=== PATIENT | female | born 1960 | race Caucasian/White ===

== ENCOUNTER → 2017-08-29 13:11 | Outpatient (REF) | payer OTHER, SELFPAY ==
[2017-08-29 17:33] LABS: Amphetamine/Metha Screen,Urine Negative ng/mL (<1000); Barbiturates Screen,Urine Negative ng/mL (<200); Benzodiazepines Screen,Urine Positive ng/mL (200); Cannabinoid Screen,Urine Negative ng/mL (<50); Cocaine Screen,Urine Negative ng/g (<300); Methadone Screen,Urine Negative ng/mL (<300); Opiate Screen,Urine Negative ng/mL (<300); Phencyclidine Screen,Urine Negative ng/mL (<25)
== END ==
LOC: LAB 13:11
PROVIDERS: Visit Provider Emergency Medicine
DX: Z79.899 Other long term (current) drug therapy (principal)
CPT/HCPCS: 80305

== ENCOUNTER → 2018-05-04 09:02 | Outpatient (REF) | payer OTHER, SELFPAY | LOC: LAB 09:02 | PROVIDERS: Visit Provider Emergency Medicine | DX: N39.0 Urinary tract infection, site not specified (principal) | CPT/HCPCS: 87086; 87088; 87186 ==

== ENCOUNTER → 2018-07-06 13:20 | Outpatient (CLI) | payer OTHER, SELFPAY ==
[2018-07-06 14:29] LABS: Amphetamine/Metha Screen,Urine Negative ng/mL (<1000); Barbiturates Screen,Urine Negative ng/mL (<200); Benzodiazepines Screen,Urine Positive ng/mL (<200); Cannabinoid Screen,Urine Negative ng/mL (<50); Cocaine Screen,Urine Negative ng/mL (<300); Methadone Screen,Urine Negative ng/mL (<300); Opiate Screen,Urine Positive ng/mL (<300); Phencyclidine Screen,Urine Negative ng/mL (<25)
== END ==
PROVIDERS: PCP Emergency Medicine; Visit Provider Emergency Medicine
DX: Z79.899 Other long term (current) drug therapy (principal)
CPT/HCPCS: 80305

== ENCOUNTER → 2018-11-25 14:07 | Outpatient (CLI) | payer OTHER, SELFPAY ==
[2018-11-25 16:15] LABS: Amphetamine/Metha Screen,Urine Negative ng/mL (<1000); Barbiturates Screen,Urine Negative ng/mL (<200); Benzodiazepines Screen,Urine Positive ng/mL (<200); Cannabinoid Screen,Urine Negative ng/mL (<50); Cocaine Screen,Urine Negative ng/mL (<300); Methadone Screen,Urine Negative ng/mL (<300); Opiate Screen,Urine Positive ng/mL (<300); Phencyclidine Screen,Urine Negative ng/mL (<25)
== END ==
PROVIDERS: Visit Provider Emergency Medicine
DX: M54.9 Dorsalgia, unspecified (principal); Z79.899 Other long term (current) drug therapy
CPT/HCPCS: 80305

== ENCOUNTER → 2020-06-12 14:16 | Outpatient (CLI) | payer OTHER, SELFPAY ==
[2020-06-12 14:43] LABS: Chloride 106 mmol/L (98-107); Potassium 4.5 mmoL/L (3.5-5.1); Sodium 141 mmol/L (136-145)
[2020-06-12 14:45] LABS: Blood Urea Nitrogen 12 mg/dl (7-17); Estimated Glomerular Filt Rate 86 ml/min (>60); GFR (African American) 104 ML/MIN (>60)
[2020-06-12 14:46] LABS: Alanine Aminotransferase 20 U/L (12-78); Albumin Level 4.1 g/dl (3.5-5.0); Albumin/Globulin Ratio 1.6 (1.1-1.8); Alkaline Phosphatase 96 U/L (38-126); Anion Gap 10.5 mEq/L (5-15); Aspartate Amino Transferase 26 U/L (14-36); Bilirubin,Total 0.3 mg/dl (0.2-1.3); Calcium 9.6 mg/dl (8.4-10.2); Carbon Dioxide 29 mmol/L (22.0-30.0); Cholesterol 215 mg/dl (140-200); Globulin 2.5 g/dL (1.3-3.2); Glucose 110 mg/dl (74-100); Total Protein,Serum 6.6 g/dl (6.3-8.2); Triglycerides 265 mg/dl (30-150); VLDL Cholesterol 53 mg/dL (0-40)
[2020-06-12 14:47] LABS: Chol/HDL Ratio 5.2 (1-3.5); HDL Cholesterol 41 mg/dl (40-60)
[2020-06-12 14:48] LABS: Basophils % 0.5 % (0.1-2.0); Eosinophils # 0.3 K/mm3 (0.0-0.4); Eosinophils % 4.1 % (0.1-12.0); Hematocrit 44.2 % (37.0-47.0); Hemoglobin 14.8 g/dL (12.2-16.2); Lymphocytes # 2.2 K/mm3 (0.7-4.5); Mean Corpuscular HGB Conc 33.5 g/dL (31.8-35.4); Mean Corpuscular Volume 98.4 fl (81-99); Mean Platelet Volume 9.5 fl (7.4-10.4); Monocytes # 0.3 K/mm3 (0.1-1.0); Monocytes % 4.6 % (1.7-9.3); Neutrophils # 3.6 K/mm3 (1.8-7.8); Neutrophils % 56.8 % (37.0-80.0); Platelet Count 256 K/mm3 (142-424); Red Blood Count 4.49 M/mm3 (4.20-5.40); Red Cell Distribution Width 13.2 % (11.5-17.5); White Blood Count 6.3 K/mm3 (4.8-10.8)
[2020-06-12 14:57] LABS: Direct LDL Cholesterol 134.14 mg/dL (100-129)
[2020-06-12 15:02] LABS: 25-OH Vitamin D, Total 29.5 ng/mL (30-100)
[2020-06-12 15:03] LABS: Free T4 (Free Thyroxine) 1.01 ng/dl (0.78-2.19)
[2020-06-12 15:16] LABS: Thyroid Stimulating Hormone 1.55 uIU/mL (0.465-4.68)
== END ==
PROVIDERS: Visit Provider Emergency Medicine
DX: E55.9 Vitamin D deficiency, unspecified (principal); E66.9 Obesity, unspecified; Z79.899 Other long term (current) drug therapy
CPT/HCPCS: 80053; 80061; 82306; 84439; 84443; 85025

== ENCOUNTER 2021-05-15 20:05 | Emergency (ER) | payer OTHER, SELFPAY ==
[2021-05-15 20:18] VITALS: BP 130/62; PULSE 66; RESP 20; TEMP 36.6; O2SAT 95; BMI 39.1
--- NOTE | 2021-05-15 20:19 | XR_ITS ---
PROCEDURE INFORMATION: Exam: XR Right Shoulder Exam date and time: 05/15/2021 8:19 PM Age: 60 years old Clinical indication: Pain and injury or trauma; Other: Injured while lifting PT; Work related; Sprain or strain; Shoulder; Right; Additional info: Pulled it at work having pain TECHNIQUE: Imaging protocol: XR Right shoulder. Views: 2 or more views. COMPARISON: No relevant prior studies available. FINDINGS: Bones/joints: No acute or healing fracture or malalignment. No unusual lytic or sclerotic lesions of bone. Moderate degenerative changes of the right acromioclavicular joint. Lungs: Calcified granuloma at the right upper lobe. Soft tissues: Normal. IMPRESSION: No acute or healing fracture or malalignment.
--- NOTE | 2021-05-15 21:14 | HMH.EDUTC ---
[facility] [place] Disposition Clinical Impression: Shoulder strain Qualifiers: Encounter type: initial encounter Laterality: right Qualified Code(s): S46.911A - Strain of unspecified muscle, fascia and tendon at shoulder and upper arm level, right arm, initial encounter Disposition: Home, Self-Care Condition on Discharge: Good Instructions: Muscle Strain, DI for Shoulder Pain, Methocarbamol Additional Instructions: *Ibuprofen shanda 6 hours with meal as needed for pain/inflammation if you can take it *Remember you had a Toradol shot in the clinic today, which is similar to Motrin *Not additional anti-inflammatory like motrin, aleve, advil with the above amount of ibuprofen. You can still take Tylenol every 4 hours as needed if you need something else for pain *Ice 20 minutes every 2 hours for the first 48 hours after the initial injury followed by moist heat every 20 minutes 3-4 times a day to affected area *Muscle relaxer as prescribed as needed for muscle spasms but remember, it WILL cause drowsiness You cannot take it and drive, operate machinery or care for small children. *Keep this area active, no movement leads to more stiffness, However take it easy and avoid heavy lifting pushing or pulling *Follow up with you family doctor if no improvement for further treatment Prescriptions: methocarbamoL [Methocarbamol 500mg Tablet] 500 mg PO BID PRN #10 tab PRN Reason: Muscle Spasm Transmission Status: Pending to [facility] Referrals: Mehul Peñaloza MD [Primary Care Provider] - As needed Forms: Work/School Release Time of Disposition: 21:33 Medical Decision Making - Evaristo Inquiry Pt receiving controlled substance: No Evaristo was queried for this patient: No Vital Signs: 05/15/21 20:18 Temperature 97.9 F Temperature Source Oral Pulse Rate [Left Radial] 66 Respiratory Rate 20 Blood Pressure [Right Arm] 130/62 Blood Pressure Mean [Right Arm] 84 Blood Pressure Source [Right Arm] Automatic Cuff Blood Pressure Position [Right Arm] Sitting 02 Sat by Pulse Oximetry 95 Oxygen Delivery Method Room Air Orders (Tests/Meds): ORDERS Category Date Time Status Shoulder XR right miminum 2 views [XR shoulder RT min Exams 05/15/21 20:19 Taken 2V] Stat - Radiology Data #1 Image(s): Shoulder Image Reviewed: Yes I have reviewed radiologist's interpretation IMPRESSION: No acute or healing fracture or malalignment. Medical Decision Narrative: Medication discussed with pharmacy [facility] [place] HPI - General Stated complaint: AO injured shoulder at work Time Seen by Provider: 05/15/21 21:14 Mode of Arrival: Ambulatory Source of Information: Patient Limitations: No Limitations Description of Symptoms (Recalled from Triage Doc. 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 she felt something pull in her right shoulder area States that ever since she has been having pain in her shoulder when she moves it States that she feels like it is tight and pulls when she tries move - Related Data Home Medications Medication Instructions Recorded Confirmed methocarbamol 750 mg tablet 750 mg PO QID 11/15/20 04/03/21 diclofenac sodium 1 % topical gel 4 g TOPICAL QID 12/04/20 04/03/21 Previous Rx's Medication Instructions Recorded duloxetine 30 mg capsule,delayed See Rx Instructions .ROUTE 08/25/19 release .COMPLEX #90 cap atenolol 50 mg tablet See Rx Instructions .ROUTE 08/11/20 .COMPLEX #90 tab clonidine HCl 0.1 mg tablet 0.1 mg PO DAILY PRN #90 tab 01/31/21 lidocaine 5 % topical patch 1 patch TOPICAL BID #60 each 01/31/21 lisinopril 20 mg tablet 20 mg PO ROBERTA
[2021-05-15 21:37] VITALS: BP 130/62; PULSE 66; RESP 20; TEMP 36.6; O2SAT 95
== END 2021-05-15 21:39 | disposition home or self-care (01) ==
LOC: ER 20:17 → UTC 20:17
PROVIDERS: Emergency Provider Nurse Practitioner; PCP Emergency Medicine
DX: S46.911A Strain of unspecified muscle, fascia and tendon at shoulder and upper arm level, right arm, initial encounter (principal); X50.0XXA Overexertion from strenuous movement or load, initial encounter; Y92.69 Other specified industrial and construction area as the place of occurrence of the external cause; Y99.0 Civilian activity done for income or pay; F41.8 Other specified anxiety disorders; K21.9 Gastro-esophageal reflux disease without esophagitis; E78.5 Hyperlipidemia, unspecified; Z79.899 Other long term (current) drug therapy
CPT/HCPCS: 73030; 99202; G0463

== ENCOUNTER 2021-07-18 10:00 | Outpatient (RCR) | payer OTHER, SELFPAY ==
--- NOTE | 2021-06-25 11:02 | HMH.OTOPEV ---
OT Inpatient Evaluation Rehab OT Outpatient Eval Start: 06/25/21 10:48 Freq: Status: Active Protocol: Document 06/25/21 10:49 ROSSY (Rec: 06/25/21 11:02 ROSSY [id number]) Electronically Signed By Cate Connolly OT 06/25/21 10:49 Outpatient Therapy Subjective History Subjective History 60 year old female referred to skilled OP OT services for right frozen shoulder/partial thickness rotator cuff tear. Patient injured R shoulder at work on 05/15/21. 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 Patient recieved an MRI at another facility and unable to see results at this time. However after initial evaluation and assessment, it is indicated rotator cuff tear is presented. Chief Complaint Pain,Weakness Symptom Type Ache,Throb Symptoms Relieved By Ice,Prescription Meds Symptoms Aggravated By Physical Activity Prior Functional Limitations None Current Functional Limitations Reaching,Lifting,Recreation Activity Symptom Description Constant and Continuous Level of pain today (0-10) 2 Pain scale - at its best (0-10) 2 Pain scale - at its worst (0-10) 8 Shoulder/Elbow Eval Shoulder Objective Measurements Shoulder ROM Right Shoulder Abduction Active Range of 50 Motion (degrees) Shoulder Flexion Active Range of Motion 80 (degrees) Query Text: Shoulder External Rotation Active Range 30 of Motion (degrees) Shoulder Internal Rotation Active Range 30 of Motion (degrees) pain with active ROM shoulder exam right standard Shoulder MMT Rhomboids Strength Grade 3- Fair- Shoulder Abduction Strength Grade 3- Fair- Shoulder Extension Strength Grade 3- Fair- Shoulder Flexion Strength Grade 3- Fair- Shoulder Horizontal Abduction Strength 3- Fair- Grade Shoulder Horizontal Adduction Strength 3- Fair- Grade Infraspinatus/Teres Minor Strength Grade 3- Fair- Shoulder Internal Rotation Strength 3- Fair- Grade Shoulder Special Tests impingement sign present shoulder exam right standard Shoulder Drop Arm Test Positive Right Shoulder Empty Can (Supraspinatus) Test Positive Right
== END 2021-07-18 10:05 | disposition home or self-care (01) ==
LOC: OT 10:00
PROVIDERS: Visit Provider Orthopaedic Surgery
DX: M25.511 Pain in right shoulder (principal); M75.01 Adhesive capsulitis of right shoulder; M75.111 Incomplete rotator cuff tear or rupture of right shoulder, not specified as traumatic
CPT/HCPCS: 97010; 97014; 97110; 97140; 97165; 97530; G0283

== ENCOUNTER → 2021-12-25 13:02 | Outpatient (CLI) | payer OTHER, SELFPAY ==
--- NOTE | 2021-12-25 13:09 | XR_ITS ---
FINAL REPORT CLINICAL HISTORY: axillary, grashy, and suprapinatus, PATIENT STATES TORN ROTATOR CUFF FINDINGS: RIGHT SHOULDER Two views demonstrate no acute fracture or dislocation. There is mild acromioclavicular and mild glenohumeral joint degenerative change. The visualized bony structures are well aligned. No soft tissue abnormality is seen. IMPRESSION: Degenerative change with no acute process. Reviewed, Interpreted and Dictated by Connor Cameron III, MD Transcribed by Yovana Granado Authenticated and [facility]
== END ==
LOC: RAD 13:07
PROVIDERS: PCP Emergency Medicine; Visit Provider Orthopaedic Surgery
DX: S46.911A Strain of unspecified muscle, fascia and tendon at shoulder and upper arm level, right arm, initial encounter (principal)
CPT/HCPCS: 73030

== ENCOUNTER → 2023-01-20 13:23 | Outpatient (CLI) | payer OTHER, SELFPAY ==
[2023-01-20 12:46] LABS: Basophils % 0.4 % (0.1-2.0); Eosinophils # 0.4 K/mm3 (0.0-0.4); Eosinophils % 3.7 % (0.1-12.0); Hematocrit 42.4 % (37.0-47.0); Hemoglobin 13.7 g/dL (12.2-16.2); Lymphocytes # 3.5 K/mm3 (0.7-4.5); Mean Corpuscular HGB Conc 32.3 g/dL (31.8-35.4); Mean Corpuscular Hemoglobin 31.8 pg (27.0-31.2); Mean Corpuscular Volume 98.6 fl (81-99); Mean Platelet Volume 8.9 fl (7.4-10.4); Monocytes # 0.6 K/mm3 (0.1-1.0); Monocytes % 5.6 % (1.7-9.3); Neutrophils % 57.2 % (37.0-80.0); Platelet Count 306 K/mm3 (142-424); Red Cell Distribution Width 12.7 % (11.5-17.5); White Blood Count 10.4 K/mm3 (4.8-10.8)
[2023-01-20 12:51] LABS: Alanine Aminotransferase 48 U/L (12-78); Albumin Level 4.1 g/dl (3.5-5.0); Albumin/Globulin Ratio 1.7 (1.1-1.8); Alkaline Phosphatase 122 U/L (38-126); Anion Gap 15.1 mEq/L (5-15); Aspartate Amino Transferase 40 U/L (14-36); Bilirubin,Total 0.3 mg/dl (0.2-1.3); Blood Urea Nitrogen 17 mg/dl (7-17); Calcium 9.2 mg/dl (8.4-10.2); Carbon Dioxide 25 mmol/L (22.0-30.0); Chloride 100 mmol/L (98-107); Chol/HDL Ratio 6.1 (1-3.5); Cholesterol 218 mg/dl (140-200); Estimated Glomerular Filt Rate 73 ml/min (>60); GFR (African American) 89 ML/MIN (>60); Globulin 2.4 g/dL (1.3-3.2); Glucose 146 mg/dl (74-100); HDL Cholesterol 36 mg/dl (40-60); Potassium 4.1 mmoL/L (3.5-5.1); Sodium 136 mmol/L (136-145); Total Protein,Serum 6.5 g/dl (6.3-8.2); Triglycerides 295 mg/dl (30-150); VLDL Cholesterol 59 mg/dL (0-40)
[2023-01-20 13:02] LABS: Direct LDL Cholesterol 134.95 mg/dL (100-129)
[2023-01-20 13:07] LABS: Free T4 (Free Thyroxine) 1.11 ng/dl (0.78-2.19)
[2023-01-20 13:10] LABS: 25-OH Vitamin D, Total 22.5 ng/mL (30-100); Amphetamine/Metha Screen,Urine Negative ng/ml (<1000)
[2023-01-20 13:11] LABS: Barbiturates Screen,Urine Negative ng/ml (<200); Benzodiazepines Screen,Urine Negative ng/ml (<200)
[2023-01-20 13:12] LABS: Cannabinoid Screen,Urine Negative ng/ml (<50)
[2023-01-20 13:13] LABS: Cocaine Screen,Urine Negative ng/ml (<300); Methadone Screen,Urine Negative ng/ml (<300)
[2023-01-20 13:14] LABS: Opiate Screen,Urine Negative ng/ml (<300)
[2023-01-20 13:15] LABS: Phencyclidine Screen,Urine Negative ng/ml (<25)
[2023-01-20 13:21] LABS: Thyroid Stimulating Hormone 1.92 uIU/mL (0.465-4.68)
[2023-01-20 16:30] LABS: Hemoglobin A1C 6.6 % (4.0-6.0)
== END ==
LOC: LAB.DROPOF 13:23
PROVIDERS: PCP Emergency Medicine; Visit Provider Emergency Medicine
DX: I10 Essential (primary) hypertension (principal); E55.9 Vitamin D deficiency, unspecified; E66.9 Obesity, unspecified; Z68.36 Body mass index [BMI] 36.0-36.9, adult; Z79.899 Other long term (current) drug therapy
CPT/HCPCS: 80053; 80061; 80305; 82306; 83036; 84439; 84443; 85025

== ENCOUNTER 2023-09-04 16:36 | Emergency (ER) | payer OTHER, SELFPAY ==
[2023-09-04] VITALS (12 sets, daily range): BP systolic 107–203; BP diastolic 48–115; PULSE 66–91; RESP 14–18; TEMP 36.4; O2SAT 88–96; BMI 39.5
--- NOTE | 2023-09-04 16:34 | ECG_ITS ---
APPROVED REPORT Exam: Resting ECG HR:72 bpm ECG Measurements Heart Rate [address] 148 P 62 QRSd 79 QRS 42 QT 375 T 58 QTc 399 Conclusion SINUS RHYTHM NORMAL ECG UNCONFIRMED REPORT Electronically signed by : Flaquito Yeung MD 09/04/2023 19:55:53
[2023-09-04] MEDS: LABETALOL 5MG/ML 20ML MDV 10 MG IV (16:54)
--- NOTE | 2023-09-04 17:01 | XR_ITS ---
PROCEDURE INFORMATION: Exam: XR Chest Exam date and time: 09/04/2023 5:15 PM Age: 63 years old Clinical indication: Other: Chest pressure; Additional info: Chest pressure, severehtn TECHNIQUE: Imaging protocol: Radiologic exam of the chest. Views: 2 views. COMPARISON: CR XR SHOULDER RT MIN 2V 12/25/2021 1:43 PM FINDINGS: Lungs: Calcified granuloma at the right lateral mid to lower lung. No airspace consolidation. Pleural spaces: Unremarkable. No pleural effusion. No pneumothorax. Heart/Mediastinum: Unremarkable. No cardiomegaly. Vasculature: Elongation of the thoracic aorta. Bones/joints: Osteopenia. Degenerative change involving the shoulders and spine. Dextroconvex curvature involving the spine. IMPRESSION: No acute cardiopulmonary process.
--- NOTE | 2023-09-04 17:01 | CT_ITS ---
PROCEDURE INFORMATION: Exam: CT Head Without Contrast Exam date and time: 09/04/2023 5:32 PM Age: 63 years old Clinical indication: Other: Severe headache TECHNIQUE: Imaging protocol: Computed tomography of the head without contrast. Radiation optimization: All CT scans at this facility use at least one of these dose optimization techniques: automated exposure control; mA and/or kV adjustment per patient size (includes targeted exams where dose is matched to clinical indication); or iterative reconstruction. COMPARISON: No relevant prior studies available. FINDINGS: Brain: Mild decreased attenuation of the supratentorial white matter is likely secondary to chronic microvascular ischemia. No acute intracranial hemorrhage, midline shift or significant intracranial mass effect. Cerebral ventricles: No hydrocephalus. Paranasal sinuses: Mild paranasal sinus disease. Mastoid air cells: Visualized mastoid air cells are well aerated. Bones/joints: Unremarkable. No acute fracture. Soft tissues: Unremarkable. IMPRESSION: No acute intracranial abnormality.
--- NOTE | 2023-09-04 17:02 | ED_ITS ---
Discharge Plan Disposition Patient Disposition: Home, Self-Care Prescriptions Prescriptions: New candesartan 16 mg tablet 16 mg PO DAILY Qty: 30 0RF carvedilol 25 mg tablet 25 mg PO BID Qty: 60 0RF Rx Instructions: must administer with a meal/food Discontinued atenolol 50 mg tablet See Rx Instructions .ROUTE .COMPLEX Qty: 90 2RF Dose Instruction: TAKE ONE TABLET BY MOUTH EVERY DAY Rx Instructions: TAKE ONE TABLET BY MOUTH EVERY DAY lisinopril 20 mg tablet See Rx Instructions .ROUTE .COMPLEX Qty: 30 2RF Dose Instruction: TAKE ONE TABLET BY MOUTH EVERY DAY Rx Instructions: TAKE ONE TABLET BY MOUTH EVERY DAY No Action clonidine HCl 0.1 mg tablet See Rx Instructions .ROUTE .COMPLEX Qty: 90 2RF Dose Instruction: TAKE ONE TABLET BY MOUTH ONCE DAILY NEEDED FOR hypertensive emergency Rx Instructions: TAKE ONE TABLET BY MOUTH ONCE DAILY NEEDED FOR hypertensive emergency calcium carbonate-vitamin D3 600 mg-25 mcg (1,000 unit) capsule 1 cap PO DAILY 60 Days Qty: 60 2RF diazepam 5 mg tablet 5 mg PO BID Qty: 60 1RF diclofenac sodium 1 % gel 4 g TOPICAL QID Qty: 100 0RF Rx Instructions: apply to single knee, ankle, foot; for foot includes sole/toes/top of foot duloxetine 30 mg capsule,delayed release(DR/EC) See Rx Instructions .ROUTE .COMPLEX Qty: 90 0RF Dose Instruction: TAKE ONE CAPSULE BY MOUTH EVERY MORNING Rx Instructions: TAKE ONE CAPSULE BY MOUTH EVERY MORNING duloxetine 60 mg capsule,delayed release(DR/EC) See Rx Instructions .ROUTE .COMPLEX Qty: 90 0RF Dose Instruction: TAKE ONE CAPSULE BY MOUTH EVERY EVENING Rx Instructions: TAKE ONE CAPSULE BY MOUTH EVERY EVENING hydrocodone-acetaminophen 10-325 mg tablet 1 tab PO Q4H PRN (Reason: pain) Qty: 180 0RF omeprazole 40 mg capsule,delayed release(DR/EC) See Rx Instructions .ROUTE .COMPLEX Qty: 180 2RF Dose Instruction: TAKE ONE CAPSULE BY MOUTH TWICE DAILY Rx Instructions: TAKE ONE CAPSULE BY MOUTH TWICE DAILY oxybutynin chloride 5 mg tablet See Rx Instructions .ROUTE .COMPLEX Qty: 60 2RF Dose Instruction: TAKE ONE TABLET BY MOUTH TWICE DAILY Rx Instructions: TAKE ONE TABLET BY MOUTH TWICE DAILY rosuvastatin 5 mg tablet 5 mg PO DAILY 30 Days Qty: 30 2RF torsemide 100 mg tablet See Rx Instructions .ROUTE .COMPLEX Qty: 30 2RF Dose Instruction: TAKE 1/2 TABLET BY MOUTH EVERY DAY Rx Instructions: TAKE 1/2 TABLET BY MOUTH EVERY DAY omega-3 fatty acids 1,000 mg capsule 1,000 mg PO DAILY 30 Days Qty: 30 2RF fenofibrate 50 mg capsule 50 mg PO DAILY 30 Days Qty: 30 2RF Referrals Follow up/Referrals: Provider,Referral, [Referring] - See instructions Russel Armijo DO [Staff Physician] - See instructions Activity Restrictions/Add. Instructions Additional Instructions/Restrictions: Call your family doctor to establish care for this visit to the emergency department and schedule follow-up within 48 hours to ensure improvement. If you have any worsening of your condition or any other concerning signs or symptoms, return to the emergency department or your primary care doctor for further evaluation. Carvedilol twice daily. Candesartan once daily. Clinical Impressions Clinical Impression: Hypertensive urgency Headache Qualifiers: Headache type: other headache syndrome Qualified Code(s): G44.89 - Other headache syndrome Discharge ED Provider: rTavon Olivera HPI General Chief Complaint: Recheck/Abnormal Lab/Rx Stated Complaint: CP Time Seen by Provider: 09/04/23 16:45 Mode of Arrival: Wheelchair Source of Information: Patient Limitations: No Limitations Description of Symptoms (Recalled from ER Triage Doc. by RN): Pt reports elevated BP 200's over 100's for 2 days. She was at another ER lastnight towards [facility] for say complaint and given IV labetolol. Pt states she is having associated severe MONTANO and blurred vison. History of Present Illness HPI narrative: 63-year-old history of hypertension, hyperlipidemia, prediabetes presenting with severe headache states that she started having elevated blood pressure for the past couple of days, but headaches have been getting progressively worse over the past week or so. 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 Also having sensitivity to ligh t and sound. Also having intermittent chest pressure and shortness of breath. Pressure does not radiate. No evidence of neurologic deficits. Patient denies neck stiffness, fevers or chills, hallucinations, intoxication, withdrawal, or any other concerns Related Data Previous Rx's Medication Instructions Recorded calcium carbonate 600 mg-vitamin 1 cap PO DAILY 60 days #60 caps 06/24/23 D3 25 mcg (1,000 unit) capsule clonidine HCl 0.1 mg tablet See Rx Instructions .Route 06/24/23 .COMPLEX #90 tabs diazepam 5 mg tablet 5 mg PO BID #60 tabs 06/24/23 diclofenac sodium 1 % topical gel 4 g topical QID #100 grams 06/24/23 duloxetine 30 mg capsule,delayed See Rx Instructions .Route 06/24/23 release .COMPLEX #90 caps duloxetine 60 mg capsule,delayed See Rx Instructions .Route 06/24/23 release .COMPLEX #90 caps fenofibrate 50 mg capsule 50 mg PO DAILY 30 days #30 caps 06/24/23 hydrocodone 10 mg-acetaminophen 1 tab PO Q4H PRN pain #180 tabs 06/24/23 325 mg tablet omega-3 fatty acids 1,000 mg 1,000 mg PO DAILY 30 days #30 caps 06/24/23 capsule omeprazole 40 mg capsule,delayed See Rx Instructions .Route 06/24/23 release .COMPLEX #180 caps oxybutynin chloride 5 mg tablet See Rx Instructions .Route 06/24/23 .COMPLEX #60 tabs rosuvastatin 5 mg tablet 5 mg PO DAILY 30 days #30 tabs 06/24/23 torsemide 100 mg tablet See Rx Instructions .Route 06/24/23 .COMPLEX #30 tabs candesartan 16 mg tablet 16 mg PO DAILY #30 tabs 09/04/23 carvedilol 25 mg tablet 25 mg PO BID #60 tabs 09/04/23 Allergies Allergy/AdvReac Type Severity Reaction Status Date / Time morphine Allergy Severe BP goes up Verified 06/23/23 08:32 hydromorphone [From Dilaudid] Allergy Intermediate Palpitation Verified 06/23/23 08:32 s metformin AdvReac Verified 06/23/23 08:53 [id number] Reductase AdvReac Verified 06/23/23 08:53 Inhibitor [facility] Disclaimer: The information contained in this section may have been updated after the patient was seen, as this information can be updated by other users. Social History Smoking Status: Never smoker alcohol intake: current substance use type: marijuana current occupational status: retired Travel in the last 8 weeks: None household members: other housing: house current occupation: medical care ROS Obtained: Yes All systems reviewed & no additional complaints except as documented Physical Exam General General appearance: alert and in distress (Secondary to pain) Eye Eye exam: Present PERRL and EOMI; Absent conjunctival redness Neck Neck exam: Present trachea midline Chest Chest inspection: Present normal inspection and symmetric chest wall rise Respiratory Respiratory exam: Present normal lung sounds bilaterally; Absent respiratory distress, wheezes, stridor, accessory muscle use or prolonged expiratory phase Cardiovascular Cardiovascular exam: Present regular rate, normal rhythm and other (Hypertensive e and tachycardic) Extremities Exam Extremities exam: Absent edema Neurological Exam Neurological exam: Present alert, oriented X3, CN II-XII intact and normal gait; Absent motor sensory deficit Skin Skin exam: Present warm and dry; Absent cyanosis, diaphoresis or pallor HEART Score HEART Score HEART Score assessment performed?: Yes History (anamnesis): Slightly suspicious ECG: Normal Age: 45-65 years Risk factors: 3 or more risk factors Troponin: </= normal limit HEART Score: 3 Critical Care Critical Care Time Critical Care Time: Yes (cardiac/neuro) Attestation: On 09/04/23, the high probability of a clinically significant, sudden or life threatening deterioration of the following system(s) required my full and direct attention, intervention and personal management. The time I documented below is in addition to time spent performing reported procedures but includes the following listed in this critical care notation. Total Time Total Critical Care Time: 45 Medical Decision Making Medical Records Medical records reviewed: Yes I reviewed the patient's medical records. Evaristo Inquiry Pt receiving controlled substance: No Evaristo was queried for this patient: No Vital Signs Vital Signs: 09/04/23 16:36 09/04/23 16:39 09/04/23 16:54 Temperature 97.6 F Temperature Source Oral Pulse Rate 85 Pulse Rate [Apical] 91 H Respiratory Rate 18 Blood Pressure 203/115 H 203/115 H Blood Pressure [Right Arm] 203/115 H Blood Pressure Mean Blood Pressure Mean [Right Arm] 144 Blood Pressure Source [Right Arm] Automatic Cuff Blood Pressure Position [Right Arm] Supine 02 Sat by Pulse Oximetry 95 94 L Oxygen Delivery Method Room Air 09/04/23 17:00 09/04/23 17:15 09/04/23 18:00 Temperature Temperature Source Pulse Rate 88 72 73 Pulse Rate [Apical] Respiratory Rate 18 18 18 Blood Pressure 150/73 H 164/75 H 152/71 H Blood Pressure [Right Arm] Blood Pressure Mean 90 104 91 Blood Pressure Mean [Right Arm] Blood Pressure Source [Right Arm] Blood Pressure Position [Right Arm] 02 Sat by Pulse Oximetry 96 94 L 93 L Oxygen Delivery Method 09/04/23 18:31 09/04/23 18:45 09/04/23 19:00 Temperature Temperature Source Pulse Rate 71 77 73 Pulse Rate [Apical] Respiratory Rate 15 14 15 Blood Pressure 111/56 L 137/67 127/51 L Blood Pressure [Right Arm] Blood Pressure Mean Blood Pressure Mean [Right Arm] Blood Pressure Source [Right Arm] Blood Pressure Position [Right Arm] 02 Sat by Pulse Oximetry 90 L 89 L 90 L Oxygen Delivery Method Room Air 09/04/23 19:31 09/04/23 20:00 Temperature Temperature Source Pulse Rate 77 66 Pulse Rate [Apical] Respiratory Rate 15 15 Blood Pressure 107/48 L 140/74 Blood Pressure [Right Arm] Blood Pressure Mean Blood Pressure Mean [Right Arm] Blood Pressure Source [Right Arm] Blood Pressure Position [Right Arm] 02 Sat by Pulse Oximetry 89 L 88 L Oxygen Delivery Method Lab Data Labs: Lab Results 09/04/23 10:41: WBC 8.5, RBC 4.38, Hgb 14.4, Hct 42.7, MCV 97.5, MCH 32.9 H, MCHC 33.7, RDW 13.4, Plt Count 274, MPV 7.7, Neut % (Auto) 58.3, Lymph % (Auto) 33.7, [place] % (Auto) 4.3, Eos % (Auto) 3.3, Baso % (Auto) 0.4, Neut # (Auto) 5.0, Lymph # (Auto) 2.9, [place] # (Auto) 0.4, Eos # (Auto) 0.3, Baso # (Auto) 0.0, Sodium 140, Potassium 4.2, Chloride 105, Carbon Dioxide 33 H, Anion Gap 6.2, BUN 6 L, Creatinine 0.70, Estimated Creat Clear 104, Estimated GFR 85, Est GFR ( Amer) 103, Glucose 123 H, Calcium 9.5, Total Bilirubin 0.5, AST 41 H, ALT 25, Alkaline Phosphatase 116, Troponin I < 0.01, Total Protein 6.7, Albumin 3.9, Globulin 2.8, Albumin/Globulin Ratio 1.4, Lipase 29, TSH 1.95, Thyroxine (T4) 11.3 H 09/04/23 10:41 09/04/23 10:41 Response Orders (Tests/Meds): ED MEDICATIONS Generic Name Dose Route Start Last Admin Trade Name Luiz PRN Reason Stop Dose Admin Lactated Ringer's 1,000 mls @ 999 mls/hr 09/04/23 19:44 09/04/23 19:45 Lactated Ringer's 1000 Ml Bag IV 09/04/23 20:44 999 mls/hr .Q1H1M ONE Administration Discontinued Medications Generic Name Dose Route Start Last Admin Trade Name Luiz PRN Reason Stop Dose Admin Aspirin 324 mg 09/04/23 17:00 09/04/23 17:12 Aspirin 81mg Chewable Tablet PO 09/04/23 17:01 243 mg ONCE ONE Administration Dexamethasone Sodium Phosphate 10 mg 09/04/23 18:09 09/04/23 18:36 Dexamethasone 4mg/Ml 1ml Vial IV 09/04/23 18:10 10 mg ONCE ONE Administration Diphenhydramine HCl 25 mg 09/04/23 18:09 09/04/23 18:35 Diphenhydramine 50mg/Ml Vial IV 09/04/23 18:10 25 mg ONCE ONE Administration Magnesium Sulfate 2 gm in 50 mls @ 50 mls/hr 09/04/23 18:09 09/04/23 18:38 Magnesium Sulfate 2gm/50ml Premix IV 09/04/23 19:08 50 mls/hr ONCE ONE Administration Ketorolac Tromethamine 15 mg 09/04/23 18:09 09/04/23 18:33 Ketorolac 30mg/Ml Vial IV 09/04/23 18:10 15 mg ONCE ONE Administration Labetalol HCl 10 mg 09/04/23 16:47 09/04/23 16:54 Labetalol 5mg/Ml 20ml Mdv IV 09/04/23 16:48 10 mg ONCE ONE Administration Ondansetron HCl 4 mg 09/04/23 17:00 09/04/23 17:12 Ondansetron 4mg/2ml Vial IV 09/04/23 17:01 4 mg ONCE ONE Administration Prochlorperazine Edisylate 10 mg 09/04/23 18:09 09/04/23 18:34 Prochlorperazine 10mg/2ml Vial IV 09/04/23 18:10 10 mg ONCE ONE Administration ORDERS Category Date Time Status CT head/brain wo con Stat Cat Scan 09/04/23 17:01 Completed CXR 2 view (NOT portable) [XR chest 2V] Stat Exams 09/04/23 17:01 Completed Complete Blood Count Auto Diff Stat Lab 09/04/23 10:41 Completed Comprehensive Metabolic Panel Stat Lab 09/04/23 10:41 Completed Lipase Stat Lab 09/04/23 10:41 Completed T4 (Thyroxine) Stat Lab 09/04/23 10:41 Completed TSH [Thyroid Stimulating Hormone] Stat Lab 09/04/23 10:41 Completed Troponin I Q3H Lab 09/04/23 20:15 Ordered Troponin I Q3H Lab 09/04/23 23:15 Ordered Troponin I Stat Lab 09/04/23 10:41 Completed ECG initial [place] Routine Y 09/04/23 16:34 Completed MDM Narrative Medical Decision Narrative: 63-year-old history of hypertension, hyperlipidemia, prediabetes presenting with severe headache states that she started having elevated blood pressure for the past couple of days, but headaches have been getting progressively worse over the past week or so. 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 Also having sensitivity to light and sound. Also having intermittent chest pressure and shortness of breath. Pressure does not radiate. No evidence of neurologic deficits. Patient denies neck stiffness, fevers or chills, hallucinations, intoxication, withdrawal, or any other concern. History was obtained via conversation with her and . On arrival, patient hemodynamically stable, alert, oriented x4, appropriate, GCS 15, moving all extremities spontaneously, pupils equal and reactive to light. Full physical exam performed and significant for 63-year-old female in mild distress secondary to headache. Hypertensive, tachycardic. Neuroexam within normal limits. Cardiopulmonary exam within normal limits as well. Differential includes hypertensive emergency, hypertensive urgency, intracranial bleed, medication induced, medication noncompliance, among others. Patient was given labetalol IV 10 mg, 0.5 g Nitropaste for symptomatic management and correction of underlying abnormalities. Workup independently interpreted and significant for nonactionable CBC or chemistry. Troponin negative. CT head without acute intracranial bleed or abnormality. See radiology read for full review of final results. Independent interpretation of EKG shows sinus rhythm 72 beats a minute without ST or T wave changes concerning for acute ischemia. [place], QRS, QT intervals within normal limits. [place] normal. Patient placed on continuous cardiac monitoring and continuous pulse ox with initial blood pressure 203/115, heart rate 91, saturation 95%. Heart score 3. Patient was placed in observation beginning at 5 PM in order to give blood pressure medications, trend blood pressures, give headache medications, resolved hypertensive emergency and determine need for admission versus home-going. Patient was given Compazine, Decadron, Benadryl, magnesium, Toradol. The patient was provided medications, serial exams while awaiting results. Independent interpretation of results demonstrated improved headache, improved blood pressure. On reevaluation, patient resting comfortably in bed sleeping. At this time, I feel patient is appropriate for discharge. Total observation time 3 hours. Conversation was had the patient regarding blood pressure medication management, she is to stop losartan and start candesartan. I also switched her from atenolol to carvedilol twice daily. Return precautions were given patient agreeable to this plan. Because patient at baseline without signs or symptoms of clinical decompensation, deemed appropriate for discharge. Results were relayed to patient who voiced understanding and were agreeable to outpatient management and follow up. At the time of discharge the patient was hemodynamically stable, tolerating PO, and mobilizing appropriately.
[2023-09-04] MEDS: ONDANSETRON 4MG/2ML VIAL 4 MG IV (17:12)
[2023-09-04] MEDS: ASPIRIN 81MG CHEWABLE TABLET 324 MG PO (17:12)
[2023-09-04 17:19] LABS: Basophils % 0.4 % (0.1-2.0); Eosinophils # 0.3 K/mm3 (0.0-0.4); Eosinophils % 3.3 % (0.1-12.0); Hematocrit 42.7 % (37.0-47.0); Hemoglobin 14.4 g/dL (12.2-16.2); Lymphocytes # 2.9 K/mm3 (0.7-4.5); Lymphocytes % 33.7 % (10-50); Mean Corpuscular HGB Conc 33.7 g/dL (31.8-35.4); Mean Corpuscular Hemoglobin 32.9 pg (27.0-31.2); Mean Corpuscular Volume 97.5 fl (81-99); Mean Platelet Volume 7.7 fl (7.4-10.4); Monocytes # 0.4 K/mm3 (0.1-1.0); Monocytes % 4.3 % (1.7-9.3); Neutrophils % 58.3 % (37.0-80.0); Platelet Count 274 K/mm3 (142-424); Red Blood Count 4.38 M/mm3 (4.20-5.40); Red Cell Distribution Width 13.4 % (11.5-17.5); White Blood Count 8.5 K/mm3 (4.8-10.8)
[2023-09-04 17:23] LABS: Alanine Aminotransferase 25 U/L (12-78); Albumin Level 3.9 g/dl (3.5-5.0); Albumin/Globulin Ratio 1.4 (1.1-1.8); Alkaline Phosphatase 116 U/L (38-126); Anion Gap 6.2 mEq/L (5-15); Aspartate Amino Transferase 41 U/L (14-36); Bilirubin,Total 0.5 mg/dl (0.2-1.3); Blood Urea Nitrogen 6 mg/dl (7-17); Calcium 9.5 mg/dl (8.4-10.2); Carbon Dioxide 33 mmol/L (22.0-30.0); Chloride 105 mmol/L (98-107); Creatinine Clearance Estimated 104 mL/min (50-200); Estimated Glomerular Filt Rate 85 ml/min (>60); GFR (African American) 103 ML/MIN (>60); Globulin 2.8 g/dL (1.3-3.2); Glucose 123 mg/dl (74-100); Lipase 29 U/L (23-300); Potassium 4.2 mmoL/L (3.5-5.1); Sodium 140 mmol/L (136-145); Total Protein,Serum 6.7 g/dl (6.3-8.2)
[2023-09-04 17:41] LABS: T4 (Thyroxine) 11.3 ug/dl (5.53-11.0)
[2023-09-04 17:53] LABS: Troponin I < 0.01 ng/ml (0.00-0.034)
[2023-09-04 17:54] LABS: Thyroid Stimulating Hormone 1.95 uIU/mL (0.465-4.68)
[2023-09-04] MEDS: KETOROLAC 30MG/ML VIAL 15 MG IV (18:33)
[2023-09-04] MEDS: PROCHLORPERAZINE 10MG/2ML VIAL 10 MG IV (18:34)
[2023-09-04] MEDS: diphenhydrAMINE 50MG/ML VIAL 25 MG IV (18:35)
[2023-09-04] MEDS: DEXAMETHASONE 4MG/ML 1ML VIAL 10 MG IV (18:36)
[2023-09-04] MEDS: MAGNESIUM SULFATE IN WATER 2 GM/50 ML PIGGYBACK IV (18:38)
--- NOTE | 2023-09-04 18:38 | PC.NURSE ---
Rounded on pt. No needs or complaints voiced at this time. Call light within reach
[2023-09-04] MEDS: LACTATED RINGERS 1000ML 1,000 ML 999 ML IV (19:45)
--- NOTE | 2023-09-04 19:57 | PC.NURSE ---
Pt assisted to bathroom at this time. UA sent. Pt given warm blanket.
== END 2023-09-04 20:34 | disposition home or self-care (01) ==
PROVIDERS: Emergency Provider Emergency Medicine; PCP Physician Assistant
DX: I16.0 Hypertensive urgency (principal); G44.89 Other headache syndrome; I10 Essential (primary) hypertension; E78.5 Hyperlipidemia, unspecified; R73.03 Prediabetes
CPT/HCPCS: 70450; 71046; 80053; 83690; 84436; 84443; 84484; 85025; 93005; 96361; 96365; 96375; 99285; J2405; J3475

== ENCOUNTER 2023-12-08 13:26 | Outpatient (CLI) | payer OTHER, SELFPAY ==
[2023-12-08 22:22] LABS: Alanine Aminotransferase 29 U/L (12-78); Albumin/Globulin Ratio 1.5 (1.1-1.8); Alkaline Phosphatase 113 U/L (38-126); Anion Gap 13.2 mEq/L (5-15); Aspartate Amino Transferase 30 U/L (14-36); Bilirubin,Direct 0.2 mg/dl (0.0-0.4); Bilirubin,Indirect 0.2 mg/dL (0.0-0.9); Bilirubin,Total 0.4 mg/dl (0.2-1.3); Bilirubin,Unconjugated 0.2 mg/dL (0.0-1.1); Blood Urea Nitrogen 23 mg/dl (7-17); Calcium 9.9 mg/dl (8.4-10.2); Carbon Dioxide 28 mmol/L (22.0-30.0); Chloride 98 mmol/L (98-107); Estimated Glomerular Filt Rate 56 ml/min (>60); GFR (African American) 68 ML/MIN (>60); Globulin 2.6 g/dL (1.3-3.2); Glucose 137 mg/dl (74-100); Potassium 4.2 mmoL/L (3.5-5.1); Sodium 135 mmol/L (136-145); Total Protein,Serum 6.6 g/dl (6.3-8.2)
== END 2023-12-08 23:59 | disposition home or self-care (01) ==
LOC: LAB.DROPOF 12-09 13:27
PROVIDERS: Visit Provider Family Medicine
DX: E11.9 Type 2 diabetes mellitus without complications (principal); I25.10 Atherosclerotic heart disease of native coronary artery without angina pectoris; Z79.84 Long term (current) use of oral hypoglycemic drugs
CPT/HCPCS: 80053; 80076; 83036

== ENCOUNTER → 2023-12-12 06:03 | Outpatient (CLI) | payer OTHER, SELFPAY | LOC: SL 06:04 | PROVIDERS: PCP Family Medicine; Visit Provider Family Medicine | DX: G47.33 Obstructive sleep apnea (adult) (pediatric) (principal); G47.36 Sleep related hypoventilation in conditions classified elsewhere | CPT/HCPCS: G0399 ==

== ENCOUNTER 2024-10-28 10:25 | Outpatient (CLI) | payer OTHER, SELFPAY ==
[2024-10-28 18:50] LABS: Basophils % 0.5 % (0.1-2.0); Eosinophils # 0.2 K/mm3 (0.0-0.4); Eosinophils % 3.1 % (0.1-12.0); Hemoglobin 12.2 g/dL (12.2-16.2); Lymphocytes # 1.6 K/mm3 (0.7-4.5); Lymphocytes % 20.5 % (10-50); Mean Corpuscular HGB Conc 34.9 g/dL (31.8-35.4); Mean Corpuscular Hemoglobin 32.1 pg (27.0-31.2); Mean Corpuscular Volume 92.1 fl (81-99); Mean Platelet Volume 9.4 fl (7.4-10.4); Monocytes # 0.5 K/mm3 (0.1-1.0); Monocytes % 6.4 % (1.7-9.3); Neutrophils # 5.4 K/mm3 (1.8-7.8); Neutrophils % 69.2 % (37.0-80.0); Nucleated Red Blood Cells # 0 10^3/uL; Nucleated Red Blood Cells % 0 %; Platelet Count 289 K/mm3 (142-424); Red Cell Distribution Width 11.9 % (11.5-17.5); Red Cell Distribution Width-SD 40.5 fL; White Blood Count 7.8 K/mm3 (4.8-10.8)
[2024-10-28 19:32] LABS: Albumin Level 4.2 g/dl (3.5-5.0); Chloride 95 mmol/L (98-107); Sodium 129 mmol/L (136-145)
[2024-10-28 19:33] LABS: Potassium 4.9 mmoL/L (3.5-5.1)
[2024-10-28 19:35] LABS: Alanine Aminotransferase 15 U/L (12-78); Albumin/Globulin Ratio 1.6 (1.1-1.8); Anion Gap 13.9 mEq/L (5-15); Aspartate Amino Transferase 21 U/L (14-36); Blood Urea Nitrogen 17 mg/dl (7-17); Carbon Dioxide 25 mmol/L (22.0-30.0); Estimated Glomerular Filt Rate 85 ml/min (>60); GFR (African American) 103 ML/MIN (>60); Globulin 2.6 g/dL (1.3-3.2); Total Protein,Serum 6.8 g/dl (6.3-8.2)
[2024-10-28 19:36] LABS: Alkaline Phosphatase 81 U/L (38-126); Bilirubin,Total 0.5 mg/dl (0.2-1.3); Calcium 9.8 mg/dl (8.4-10.2); Chol/HDL Ratio 4.5 (1-3.5); Cholesterol 186 mg/dl (140-200); Glucose 123 mg/dl (74-100); HDL Cholesterol 41 mg/dl (40-60); Triglycerides 131 mg/dl (30-150); VLDL Cholesterol 26 mg/dL (0-40)
[2024-10-28 19:39] LABS: 25-OH Vitamin D, Total 31.5 ng/mL (30-100)
[2024-10-28 19:52] LABS: Direct LDL Cholesterol 122.31 mg/dL (100-129)
[2024-10-28 20:15] LABS: Thyroid Stimulating Hormone 1.27 uIU/mL (0.465-4.68)
[2024-10-28 22:32] LABS: Hemoglobin A1C 6.1 % (4.0-6.0)
== END 2024-10-28 23:59 | disposition home or self-care (01) ==
LOC: LAB.DROPOF 10-29 10:14
PROVIDERS: PCP Family Medicine; Visit Provider Family Medicine
DX: E11.9 Type 2 diabetes mellitus without complications (principal); E78.2 Mixed hyperlipidemia; E66.9 Obesity, unspecified; I10 Essential (primary) hypertension; F32.A Depression, unspecified; G89.29 Other chronic pain; M12.811 Other specific arthropathies, not elsewhere classified, right shoulder; M12.812 Other specific arthropathies, not elsewhere classified, left shoulder; Z79.899 Other long term (current) drug therapy
CPT/HCPCS: 80053; 80061; 82306; 83036; 84443; 85025